=== PATIENT | female | born 1945 | race Caucasian/White ===

== ENCOUNTER → 2017-08-20 | Outpatient (CLI) | payer MEDICARE ==
[~2017-08-20] MED LIST: ASCO-182 PO; ASCO-191 PO; ASPI-1471 PO; CALC-1 PO; CALC-734 PO; CEF300 PO; CHOL100058 PO; CLOB50SO11 TP; CYCL1DRO6 OP; DIAZ-311 PO; FLUT16SP19 NS; GLUC-130 PO; GLUCOSAMINE 1,1 EACH PO; LACT1CAP6 PO; LEVO-85 PO; MELA1TAB15 PO; METF-411 PO; MULT-27 PO; OMEG-11 PO; PNEI IJ; PNEU0.5D3 IM; PRED20TA6 PO; PSYL660P5 PO; SIMV-49 PO; [UNRECOGNIZED DRUG - CODE] PO
--- NOTE | 2017-08-20 16:19 | RADIOLOGY IMAGING REPORT ---
FACILITY: [facility] PATIENT NAME: Pattie Merritt : 1945 MR: [id number] V: [id number] EXAM DATE: ORDERING PHYSICIAN: CATHRYN MORRIS TECHNOLOGIST: Location: [facility] - [place] Patient: Pattie Merritt : 1945 Visit/Account:[id number] Date of Sevice: 08/20/2017 CHEST PA AND LAT COMPARISONS: None ADDITIONAL PERTINENT HISTORY: Cough for 3 years. FINDINGS: Cardiomediastinal silhouette: Negative. Pulmonary vasculature: Negative. Lung romano: Negative. Pleural spaces: Negative. Osseous structures: Negative. Surrounding soft tissues: Negative. IMPRESSION: No evidence of acute cardiopulmonary disease. Report Dictated By: Myles Mock MD at 08/20/2017 4:12 PM Report E-Signed By: Myles Mock MD at 08/20/2017 4:15 PM WSN:[id number]
== END ==
LOC: RAD 15:19
PROVIDERS: ATTEND Internal Medicine
DX: R05 Cough (principal)
CPT/HCPCS: 71046

== ENCOUNTER → 2018-02-10 | Outpatient (CLI) | payer MEDICARE ==
[~2018-02-10] MED LIST changes: +FLU180SY11 IM; +IPRA15SP7 NS; -METF-411 PO; +METF-450 PO; +OMEP40CA48 PO; +RANI-325 PO; +TRIA10.8 NS
== END ==
LOC: LAB 09:01
PROVIDERS: ATTEND Otolaryngology
DX: R05 Cough (principal); J30.9 Allergic rhinitis, unspecified
CPT/HCPCS: 36415; 86003

== ENCOUNTER → 2018-06-17 | Outpatient (CLI) | payer MEDICARE ==
[~2018-06-17] MED LIST changes: +ACET500T68 PO; +ASCO-480 PO; +AZEL137S NS; +GLUC1TAB35 PO; +MULT1TAB67 PO; +OMEP-125 PO; +SENN1TAB10 PO
--- NOTE | 2018-06-17 11:39 | RADIOLOGY IMAGING REPORT ---
FACILITY: [facility] PATIENT NAME: Pattie Merritt : 1945 MR: [id number] V: [id number] EXAM DATE: ORDERING PHYSICIAN: VERA ASHBY TECHNOLOGIST: Location: [facility] - [place] Patient: Pattie Merritt : 1945 Visit/Account:[id number] Date of Sevice: 06/17/2018 Exam type: HIP RIGHT History: pain Comparison: None. Findings: An AP view the pelvis and and abducted view of the right hip demonstrates no evidence of acute fractu re or dislocation lytic or blastic bone lesion. No significant arthritic changes seen. Incidentally noted are mild spondylotic changes in the visualized lower lumbar spine IMPRESSION: 1. No acute osteoarticular abnormality the right hip is seen Incidental note of mild degenerative changes in the lower sternal lumbar spine Report Dictated By: Teagan Hernandez MD at 06/17/2018 11:33 AM Report E-Signed By: Teagan Hernandez MD at 06/17/2018 11:35 AM WSN:[email or web address]
== END ==
LOC: RAD 09:41
PROVIDERS: ATTEND Family Medicine
DX: M25.551 Pain in right hip (principal)

== ENCOUNTER 2018-07-16 09:00 | Outpatient (RCR) | payer MEDICARE ==
--- NOTE | 2018-06-19 21:08 | PT INITIAL EVALUATION ---
MEDICAL DIAGNOSIS: R hip pain TREATMENT DIAGNOSIS: same DATE OF ONSET: 06/13/18 SUBJECTIVE: Pattie Merritt presents to physical therapy with complaints of R hip pain that started the June. She reports that she hit her R hip on the board of her bed, which has resulted in a bruise and increased R hip pain with ambulation and going up and down stairs. She reports that she has been taking some medications, which makes it feel a little better. She also reports that it feels better with sitting. She reports that she would like to get to walking without any pain as fast as possible. She reports that she had an x-ray without any significant findings. Pain location is R trochanter on lateral hip and described as achy. Pain scale is 4 on a ten point pain scale. REHAB PROBLEM LIST: Increased Pain Decreased ROM Decreased Strength Decreased Endurance Decreased Function Decreased Mobility Decreased Gait PREVIOUS MEDICAL HISTORY: See EMR OCCUPATION: Retired OBJECTIVE: Posture: She demonstrated normal posture mechanics ROM: B LE AROM with hip, knee, and ankle: WFL's with no pain. Strength: B hip flexion, abduction, extension: 4+/5. B knee flexion and extension, B hip adduction, and B ankle PF and DF: 5/5. She did not have any pain with the MMT's. Palpation: TTP: over greater trochanter on R hip Sensation: Intact L1-S1 Special Tests: Glute med/minimus, Quadriceps, hip adductors, iliopsoas: negative for tendinopathy. Positive for signs and symptoms consistent with trochanteric bursitis. Mobility: Independent Gait: She demonstrated antalgic gait with decreased stance time on her R LE and decreased step length with L LE. ASSESSMENT: Pattie will benefit from skilled physical therapy addressing the listed impairments to improve function and QOL. Based on her examination, her signs and symptoms are consistent with R trochanter bursitis. She demonstrates independence with home exercise program. Short Term Goals 6 weeks: Pt will demonstrate abolished R hip pain and return to prior level of function to improve QOL. 6 weeks: Pt will be able to ambulation her desired distance without any R hip pain. 6 weeks: Pt will be independent with prevention and how to prevent reoccurrences to improve function and QOL. Patient's Goals get rid of this R hip pain PLAN: Patient to be seen for Manual Therapy/STM/MET Strengthening/condition Ice/Heat Range of Motion Spinal Stabilization Ultrasound Work Hardening/Cond Stretching Iontophoresis Neuromuscular Re-ed Closed Chain Program Electrical Stim Gait Trg/Balance Trg Home Exercise Program Therapeutic Activities 2x/Week for 6 Weeks If you have any questions, comments, or concerns about this report or plan, please contact me at . Thank you, Norman Kilgore, PT, DPT MTDD
[~2018-07-16 09:00] MED LIST changes: -OMEP-125 PO; +OMEP-126 PO
[2018-09-14] MEDS ORDERED: ACET500T68 PO (15:23)
[2018-09-14] MEDS ORDERED: ASCO1CAP7 PO (15:25)
[2018-09-14] MEDS ORDERED: MELA5TAB3 PO (15:33)
== END 2018-09-16 ==
LOC: PT 09:00
PROVIDERS: ATTEND Family Medicine
DX: M25.551 Pain in right hip (principal)
CPT/HCPCS: 97161

== ENCOUNTER → 2018-10-20 | Outpatient (CLI) | payer MEDICARE ==
[~2018-10-20] MED LIST changes: +ASCO1CAP7 PO; +MELA5TAB3 PO
[2018-10-20 16:51] LABS: PLATELET COUNT, AUTOMATED 250 K/uL (150-450)
--- NOTE | 2018-10-20 17:15 | RADIOLOGY IMAGING REPORT ---
FACILITY: [facility] - [place], [place] PATIENT NAME: Pattie Merritt : 1945 MR: [id number] V: [id number] EXAM DATE: ORDERING PHYSICIAN: VERA ASHBY TECHNOLOGIST: Location: [facility] - [place] Patient: Pattie Merritt : 1945 Visit/Account:[id number] Date of Sevice: 10/20/2018 KUB SINGLE VIEW ABDOMEN HISTORY: Constipation. COMPARISON: None. FINDINGS: A single AP supine view of the abdomen was obtained. Distribution of bowel gas is normal with bowel in all four quadrants as well as centrally. There is m ild to moderate stool within ascending and transverse colon. No dilated bowel loops. No free air. There are pelvic phleboliths. There is mild degenerative change of the spine. There is a mild leftwar d curvature of the lumbar spine. There is a 7 mm calcification to the left of the L3-4 disc interspace. IMPRESSION: 1. Mild to moderate stool within the ascending and transverse colon. No obstruction. 2. 7 mm calculus may be in the left kidney or left ureter. Alternatively, this could be a calcificati on within the abdomen. If patient has left flank pain, noncontrast CT abdomen and pelvis could be per formed for further evaluation. Report Dictated By: Monique Mobley at 10/20/2018 5:04 PM Report E-Signed By: Monique Mobley at 10/20/2018 5:07 PM WSN:[id number]
== END ==
LOC: LAB 12:10
PROVIDERS: ATTEND Family Medicine
DX: K59.00 Constipation, unspecified (principal); R73.03 Prediabetes; R53.83 Other fatigue; Z79.899 Other long term (current) drug therapy
CPT/HCPCS: 36415; 74018; 82040; 82247; 82306; 82310; 82374; 82435; 82565; 82607; 82947; 83036; 84075; 84132; 84155; 84295; 84443; 84450; 84460; 84520; 85025

== ENCOUNTER → 2018-10-26 | Outpatient (CLI) | payer MEDICARE ==
--- NOTE | 2018-10-26 10:45 | RADIOLOGY IMAGING REPORT ---
FACILITY: [facility] - [place] PATIENT NAME: Pattie eMrritt : 1945 MR: [id number] V: [id number] EXAM DATE: ORDERING PHYSICIAN: VERA ASHBY TECHNOLOGIST: Location: [facility] Patient: Pattie Merritt : 1945 Visit/Account:[id number] Date of Sevice: 10/26/2018 DEXA Scan Clinical history: Postmenopausal. Comparison: DEXA scan from 10/25/2011. LUMBAR SPINE: The bone mineral density (BMD) measured from L1-L4 correlates with a Z-score of 4.2 and a T-score of 2.4 which is Normal as defined by the World Health Organization. The corresponding risk of fracture in the lumbar spine is Not increased compared with a young adult reference population. This value jernigan s increased by 8.1 % since the prior study. More than 5% change is considered significant. HIP: Bone mineral density (BMD) measured in the LEFT total hip region correlates with a Z-score 1.5 and a T-score of -0.1 which is normal as defined by the World Health Organization. The corresponding risk of fracture in the hip is Not i ncreased compared to a young adult reference population. This value has decrease by 4.6 % since the p rior study. More than 5% change is considered significant. T score left femoral neck -1.1 Bone mineral density (BMD) measured in the Femoral Neck region measures 0.883 g/cm?. IMPRESSION: 1. Lumbar spine: Normal. There has been 8.1% increase in the bone mineral density since the previou s exam. 2. Left Total Hip: Normal. There has been 4.6% decrease in the bone mineral density since the previ ous exam. 3. Femoral Neck: Bone Mineral Density is 0.883 g/cm? The next DEXA scan of this patient should include the following sites: L1-L4 and the left hip. FRAX? WHO Fracture Risk Assessment Tool link: <http://www.shef.ac.uk/FRAX/tool.jsp?locationValue=9> PLEASE NOTE: 1) The World Health Organization defines low BMD as follows: T-score Normal > -1 Osteopenia < -1 and > -2.5 Osteoporosis < -2.5 without fractures Established osteoporosis < -2.5 with fractures 2) In general, you may wish to consider: Diagnosis Treatment Follow-up DEXA Normal BMD Prevention 2-3 years Osteopenia Prevention/therapy 1-2 years Osteoporosis Therapy Yearly 3) Fracture risk estimated from the T-score is more accurate for vertebral fractures (often spontane ous) than for hip fractures. Report Dictated By: Teagan Hernandez MD at 10/26/2018 10:34 AM Report E-Signed By: Teagan Hernandez MD at 10/26/2018 10:36 AM WSN:[email or web address]
== END ==
LOC: RAD 00:50
PROVIDERS: ATTEND Family Medicine
DX: Z78.0 Asymptomatic menopausal state (principal)
CPT/HCPCS: 77080